=== PATIENT | female | born 1955 | race Caucasian/White ===

== ENCOUNTER 2017-12-10 02:00 | Emergency (ER) | payer OTHER ==
[2017-12-10] MEDS: ONDANSETRON HCL 4 MG/2 ML SOL IV ONE ×2 (02:04→02:26)
[2017-12-10 02:07] VITALS: RESP 16; TEMP 98.2
[2017-12-10] MEDS ORDERED: PANTOPRAZOLE SODIUM 40 MG/10 ML PDS ONE (02:18)
[2017-12-10] MEDS: SODIUM CHLORIDE 0.9% 1000ML 1,000 ML IV ONE (02:20)
[2017-12-10] MEDS: PANTOPRAZOLE SODIUM 40 MG/10 ML PDS IV ONE (02:23)
[2017-12-10] MEDS ORDERED: ONDANSETRON HCL 4 MG/2 ML SOL ONE (02:25)
[2017-12-10 02:31] LABS: HEMATOCRIT 42 % (35-47); HEMOGLOBIN 14.6 gm/dl (12.0-15.5); MEAN CORPUSCULAR HEMOGLOBIN 32.6 pg (27.0-32.0); MEAN CORPUSCULAR VOLUME 93 fL (81-99)
[2017-12-10 02:45] LABS: BILIRUBIN,TOTAL 1.1 mg/dl (0.2-1.0); CALCIUM 9.5 mg/dl (8.5-10.1); CARBON DIOXIDE 27.1 mEq/L (21-32); CREATININE 0.91 mg/dl (0.60-1.00); POTASSIUM 3.8 mMol/L (3.5-5.1); TOTAL PROTEIN 8.6 gm/dl (6.4-8.2)
[2017-12-10 03:01] LABS: ANISOCYTOSIS SLIGHT; BAND NEUTROPHILS % (MANUAL) 1 %; BASOPHILS % (MANUAL) 0 % (0-3); EOSINOPHILS % (MANUAL) 0 % (0-9); LYMPHOCYTES % (MANUAL) 7 % (10-50); MONOCYTES % (MANUAL) 6 % (0-12); NEUTROPHILS % (MANUAL) 86 % (37-80)
[2017-12-10 03:16] LABS: INR 1.09 (0.86-1.12)
[2017-12-10] MEDS: SODIUM CHLORIDE 0.9% 1000ML 1,000 ML IV SCH (03:45)
[2017-12-10 04:25] VITALS: BP 137/64; PULSE 92; O2SAT 95
== END 2017-12-10 04:17 | disposition short-term general hospital (02) | DRG 379 ==
LOC: ED 02:00
DX: K92.2 Gastrointestinal hemorrhage, unspecified (principal)
CPT/HCPCS: 36415; 80053; 85007; 85027; 85610; 96365; 96374; 96375; 99283; 99285; J2405

== ENCOUNTER 2018-04-29 16:42 | Emergency (ER) | payer OTHER ==
[2018-04-29 16:43] VITALS: O2SAT 95
[2018-04-29 16:50] VITALS: BP 154/95; PULSE 82; RESP 16; TEMP 98.2
[2018-04-29] MEDS ORDERED: ONDANSETRON 4 MG ODT BU ONE (17:07)
[2018-04-29] MEDS ORDERED: ONDANSETRON 4 MG ODT ONE (17:08)
== END 2018-04-29 17:21 | DRG 880 ==
LOC: ED 16:42
DX: F41.9 Anxiety disorder, unspecified (principal)
CPT/HCPCS: 99282; 99283; A9270-GY

== ENCOUNTER 2018-10-02 18:19 | Inpatient (IN) | payer OTHER ==
[2018-10-02] MEDS: ONDANSETRON HCL 4 MG/2 ML SOL IV PRN ×2 (19:10→22:52)
[2018-10-02] MEDS ORDERED: LORAZEPAM 0.5 MG TAB PO PRN (19:27)
[2018-10-02] MEDS ORDERED: ONDANSETRON HCL 4 MG/2 ML SOL IV PRN (19:27)
[2018-10-02] MEDS ORDERED: ALUMINUM/MAGNESIUM 30 ML SUS PO PRN (19:27)
[2018-10-02] MEDS ORDERED: SODIUM CHLORIDE 0.9% FLUSH 10 ML SOL IV SCH (19:30)
[2018-10-02] MEDS ORDERED: SODIUM CHLORIDE 0.9% 1000ML 1,000 ML IV ONE (19:31)
[2018-10-02 20:04] LABS: INR 1.04 (0.86-1.12)
[2018-10-02 20:08] LABS: AMMONIA < 10 umol/L (11-32); MAGNESIUM 1.7 mg/dl (1.8-2.4)
[2018-10-02] MEDS: SODIUM CHLORIDE 0.9% FLUSH 10 ML SOL IV SCH (20:20)
[2018-10-02] MEDS: PANTOPRAZOLE SODIUM 40 MG/10 ML PDS IV SCH (20:20)
[2018-10-02] MEDS ORDERED: CETIRIZINE HYDROCHLORIDE 10 MG TAB PO PRN (20:40)
[2018-10-02] MEDS ORDERED: HYDROXYZINE PAMOATE 50 MG CAP PO PRN (20:40)
[2018-10-02] MEDS ORDERED: MAGNESIUM HYDROXIDE 30 ML SUS PO PRN (20:41)
[2018-10-02] MEDS ORDERED: TRAZODONE HYDROCHLORIDE 50 MG TAB PO SCH (21:00)
[2018-10-02] MEDS: GABAPENTIN 100 MG CAP PO SCH (21:17)
[2018-10-02] MEDS: SODIUM CHLORIDE 0.9% 1000ML 1,000 ML IV SCH (21:40)
[2018-10-03] MEDS: ONDANSETRON HCL 4 MG/2 ML SOL IV PRN (03:40)
[2018-10-03] MEDS: SODIUM CHLORIDE 0.9% FLUSH 10 ML SOL IV SCH ×2 (04:04→09:23)
[2018-10-03] MEDS: SODIUM CHLORIDE 0.9% 1000ML 1,000 ML IV SCH (04:08)
[2018-10-03 07:32] LABS: BASOPHILS % (AUTO) 1 % (0-3); EOSINOPHILS % (AUTO) 0 % (0-9); HEMATOCRIT 40 % (35-47); HEMOGLOBIN 12.7 gm/dl (12.0-15.5); LYMPHOCYTES % (AUTO) 17.3 % (10-50); MEAN CORPUSCULAR HEMOGLOBIN 30.4 pg (27.0-32.0); MEAN CORPUSCULAR HGB CONC 31.6 gm/dl (32.0-36.0); MEAN CORPUSCULAR VOLUME 96 fL (81-99); MONOCYTES % (AUTO) 11.8 % (0-12); NEUTROPHILS % (AUTO) 69.6 % (37-80)
[2018-10-03 07:35] LABS: CALCIUM 8.8 mg/dl (8.5-10.1); CARBON DIOXIDE 28.8 mEq/L (21-32); CREATININE 0.78 mg/dl (0.60-1.00); POTASSIUM 3.5 mMol/L (3.5-5.1)
[2018-10-03 08:00] LABS: AMPHETAMINES NEGATIVE (NEGATIVE); BARBITUATES NEGATIVE (NEGATIVE); BENZODIAZEPINES NEGATIVE (NEGATIVE); CANNABINOL(THC) NEGATIVE (NEGATIVE); COCAINE(COC) NEGATIVE (NEGATIVE); METHADONE NEGATIVE (NEGATIVE); METHAMPHETAMINES NEGATIVE (NEGATIVE); OPIATES(OPI) NEGATIVE (NEGATIVE); OXYCODONE(OXY) NEGATIVE (NEGATIVE); PROPOXYPHENE(PPX) NEGATIVE (NEGATIVE); TRICYCLIC ANTIDEPRESSANTS NEGATIVE (NEGATIVE)
[2018-10-03] MEDS ORDERED: FOLIC ACID 1 MG TAB PO SCH (09:00)
[2018-10-03] MEDS ORDERED: POLYETHYLENE GLYCOL 17 GM/1 TBS PDS PO SCH (09:00)
[2018-10-03] MEDS ORDERED: FLUOXETINE HYDROCHLORIDE 10 MG CAP PO SCH (09:00)
[2018-10-03] MEDS ORDERED: THIAMINE 100 MG TAB PO SCH (09:00)
[2018-10-03] MEDS ORDERED: MULTIVITAMIN2 1 EA TAB PO SCH (09:00)
[2018-10-03] MEDS: GABAPENTIN 100 MG CAP PO SCH ×2 (09:16→14:05)
[2018-10-03] MEDS: PANTOPRAZOLE SODIUM 40 MG/10 ML PDS IV SCH (09:23)
[2018-10-03 11:15] VITALS: RESP 14; TEMP 98.2
[2018-10-03 16:13] LABS: BASOPHILS % (AUTO) 1 % (0-3); EOSINOPHILS % (AUTO) 1 % (0-9); HEMATOCRIT 41 % (35-47); HEMOGLOBIN 13.6 gm/dl (12.0-15.5); LYMPHOCYTES % (AUTO) 17.3 % (10-50); MEAN CORPUSCULAR HEMOGLOBIN 30.9 pg (27.0-32.0); MEAN CORPUSCULAR VOLUME 94 fL (81-99); MONOCYTES % (AUTO) 9.5 % (0-12); NEUTROPHILS % (AUTO) 71.9 % (37-80)
[2018-10-03 16:24] VITALS: BP 145/94; PULSE 91; O2SAT 93
== END 2018-10-03 16:55 | disposition home or self-care (01) | DRG 378 ==
LOC: ACUTE CARE 18:19
PROVIDERS: ADMIT Family Medicine; ATTEND Family Medicine
DX: K29.21 Alcoholic gastritis with bleeding (principal); F10.230 Alcohol dependence with withdrawal, uncomplicated; F41.9 Anxiety disorder, unspecified
CPT/HCPCS: 36415; 80048; 80305; 82140; 83735; 85025; 85610; J2405; A9270-GY

== ENCOUNTER 2018-10-31 09:58 | Day surgery (SDC) | payer OTHER ==
[2018-10-31] MEDS ORDERED: PROPOFOL 500 MG/50 ML EMU IV ONE (10:09)
[2018-10-31] MEDS ORDERED: LIDOCAINE HCL 1% MPF 30 SOL ONE (10:09)
[2018-10-31] MEDS ORDERED: PROPOFOL 10 MG/ML 200 MG/20 ML EMU IV ONE (11:26)
[2018-10-31 12:16] VITALS: BP 106/80; PULSE 68; RESP 20; TEMP 97.6; O2SAT 93
== END 2018-10-31 12:45 | disposition home or self-care (01) | DRG 951 ==
LOC: SURG 09:58
PROVIDERS: ATTEND Surgery
DX: Z12.11 Encounter for screening for malignant neoplasm of colon (principal); K57.32 Diverticulitis of large intestine without perforation or abscess without bleeding; K92.0 Hematemesis; K92.1 Melena; Z80.0 Family history of malignant neoplasm of digestive organs; F10.10 Alcohol abuse, uncomplicated; D12.3 Benign neoplasm of transverse colon; K44.9 Diaphragmatic hernia without obstruction or gangrene
CPT/HCPCS: J2001; J2704